=== PATIENT | male | born 1985 | race American Indian/Alaskan Native ===

== ENCOUNTER 2017-10-12 20:35 | Emergency (ER) | payer OTHER ==
[2017-10-12 21:27] LABS: Basophils % (Auto) 0.3 % (0.0-1.8); Hemoglobin 14.1 gm/dl (11.8-15.2); Lymphocytes # (Auto) 4.5 K/mm3 (1.2-5.4); Lymphocytes % (Auto) 38.6 % (13.4-35.0); Mean Corpuscular HGB Conc 33 % (32-34); Mean Corpuscular Hemoglobin 31 pg (28-32); Mean Corpuscular Volume 93 fl (84-94); Monocytes # (Auto) 1.6 K/mm3 (0.0-0.8); Monocytes % (Auto) 13.4 % (0.0-7.3); Platelet Count 204 K/mm3 (140-440); Red Blood Count 4.53 M/mm3 (3.65-5.03)
[2017-10-12 21:32] LABS: Bilirubin,Urine NEG (Negative); Blood,Urine NEG (Negative); Color,Urine Amber (Yellow); Mucus,Urine FEW /HPF; Nitrite,Urine NEG (Negative)
[2017-10-12 21:51] LABS: Alanine Aminotransferase 34 units/L (7-56); Albumin 3.6 g/dL (3.9-5); BUN/Creatinine Ratio 13; Blood Urea Nitrogen 13 mg/dL (9-20); Calcium 8.8 mg/dL (8.4-10.2); Hemolysis Index 5
[2017-10-12] MEDS ORDERED: TYLENOL ONE (21:59)
[2017-10-13] MEDS ORDERED: TYLENOL PO ONE (00:34)
[2017-10-13] MEDS ORDERED: TORADOL IV ONE (06:26)
[2017-10-13] MEDS ORDERED: MORPHINE IV ONE (06:26)
--- NOTE | 2017-10-13 06:26 | Emergency Department Report ---
ED Male HPI - General Chief complaint: Abdominal Pain Stated complaint: TESTICLE PAIN,FEVER Time Seen by Provider: 10/13/17 06:13 Source: patient Mode of arrival: Ambulatory Limitations: No Limitations - History of Present Illness Initial comments: Patient is a 32-year-old [place] male who is presenting with left testicular pain. Patient states he started having left testicular discomfort 3 days ago. Patient states he has swelling in this area. Pain is aching 6 out of 10 in severity. Patient denies dysuria trauma penile discharge nausea vomiting fever at this time. Patient was hoping that the pain will subside however it is getting worse. There is some radiation of the pain to the left inguinal area. MD Complaint: testicle pain, testicle swelling Location: left testicle Severity: moderate Severity scale (0 -10): 6 Quality: aching Consistency: constant Improves with: none Worsens with: none denies other symptoms, swelling. denies: discharge, mass, urinary retention, blood in urine, fever, nausea/vomiting, incontinence - Related Data Previous Rx's Medication Instructions Recorded Last Taken Type Ciprofloxacin HCl [Cipro] 500 mg PO BID #20 tablet 10/13/17 Unknown Rx Doxycycline [Vibramycin] 100 mg PO Q12HR #20 capsule 10/13/17 Unknown Rx HYDROcodone/APAP 7.5-325 [Brid[place] 1 each PO Q6HR PRN #20 tablet 10/13/17 Unknown Rx 7.5/325] Ibuprofen [Motrin] 800 mg PO Q8HR PRN #20 tablet 10/13/17 Unknown Rx Allergies Allergy/AdvReac Type Severity Reaction Status Date / Time No Known Allergies Allergy Unverified 10/12/17 20:54 ED Review of Systems ROS: Stated complaint: TESTICLE PAIN,FEVER Other details as noted in HPI Comment: All other systems reviewed and negative ED Past Medical Hx - Past Medical History Hx HIV: Yes Additional medical history: GENITAL HERPES, SEPSIS - Surgical History Past Surgical History?: No - Social History Smoking Status: Never Smoker Substance Use Type: None - Medications Home Medications: Home Medications Medication Instructions Recorded Confirmed Last Taken Type Ciprofloxacin HCl [Cipro] 500 mg PO BID #20 tablet 10/13/17 Unknown Rx Doxycycline [Vibramycin] 100 mg PO Q12HR #20 capsule 10/13/17 Unknown Rx HYDROcodone/APAP 7.5-325 [Brid[place] 1 each PO Q6HR PRN #20 tablet 10/13/17 Unknown Rx 7.5/325] Ibuprofen [Motrin] 800 mg PO Q8HR PRN #20 tablet 10/13/17 Unknown Rx ED Physical Exam - General Limitations: No Limitations General appearance: alert, in no apparent distress - Head Head exam: Present: atraumatic, normocephalic - Eye Eye exam: Present: normal appearance - ENT ENT exam: Present: mucous membranes moist - Neck Neck exam: Present: normal inspection - Respiratory Respiratory exam: Present: normal lung sounds bilaterally. Absent: respiratory distress - Cardiovascular Cardiovascular Exam: Present: regular rate, normal rhythm. Absent: systolic murmur, diastolic murmur, rubs, gallop - GI/Abdominal GI/Abdominal exam: Present: soft, normal bowel sounds - Rectal Rectal exam: Present: deferred - exam: Present: testicular tenderness, scrotal swelling (left-sided). Absent : normal inspection, urethral discharge - Extremities Exam Extremities exam: Present: normal inspection - Back Exam Back exam: Present: normal inspection - Neurological Exam Neurological exam: Present: alert, oriented X3 - Psychiatric Psychiatric exam: Present: normal affect, normal mood - Skin Skin exam: Present: warm, dry, intact, normal color. Absent: rash ED Course Vital Signs 10/12/17 10/13/17 10/13/17 20:44 00:35 05:15 Temperature 102.5 F H 97.9 F Pulse Rate 105 H 61 Respiratory 16 16 18 Rate Blood Pressure 112/80 118/87 Blood Pressure 112/80 [Right] O2 Sat by Pulse 98 100 Oximetry ED Medical Decision Making - Lab Data Result diagrams: 10/12/17 21:12 10/12/17 21:12 - Radiology Data Radiology results: report reviewed Left-sided epididymoorchitis shown on ultrasound. Patient will be started on antibiotics here in the emergency department. GC chlamydia has been covered for. Patient be discharged home with antibiotics and pain medicine. - Medical Decision Making Ultrasound testicle shows left-sided epididymal orchitis Critical care attestation.: If time is entered above; I have spent that time in minutes in the direct care of this critically ill patient, excluding procedure time. ED Disposition Clinical Impression: Epididymo-orchitis without abscess Disposition: - TO HOME OR SELFCARE Is pt being admited?: No Does the pt Need Aspirin: No Condition: Fair Instructions: Epididymitis (ED) Prescriptions: Ciprofloxacin HCl [Cipro] 500 mg PO BID #20 tablet Doxycycline [Vibramycin] 100 mg PO Q12HR #20 capsule HYDROcodone/APAP 7.5-325 [Bridgeton 7.5/325] 1 each PO Q6HR PRN #20 tablet PRN Reason: Pain Ibuprofen [Motrin] 800 mg PO Q8HR PRN #20 tablet PRN Reason: Pain Referrals: SERVANDO FULLER MD [Staff Physician] - 3-5 Days
--- NOTE | 2017-10-13 07:21 | Ultrasound Report ---
FINAL REPORT EXAM: US TESTICULAR DOPPLER COMP HISTORY: left test swelling fever COMPARISONS: None FINDINGS: Grayscale, color and spectral Doppler ultrasound evaluation of the testicles The right testicle measures 3.6 x 1.4 x 2.9 cm and demonstrates normal echotexture and color and spectral Doppler evaluation. The epididymis is within normal limits. No intra or extratesticular mass. The left testicle measures 5 x 2.6 x 3.9 cm. A small left-sided hydrocele is present. There is left testicular and epididymal hyperemia. The left epididymis is enlarged with maximal dimension of the epididymal head approximately 18 millimeters. Left testicular spectral Doppler waveforms are preserved. No evident abscess formation. No intra or extratesticular mass. No varicocele. No right-sided hydrocele. IMPRESSION: Left epididymitis and orchitis. No evident abscess formation.
[2017-10-13] MEDS ORDERED: ROCEPHIN IM ONE (07:40)
[2017-10-13] MEDS ORDERED: NORCO 10/325 PO ONE (07:40)
[2017-10-13] MEDS ORDERED: XYLOCAINE 1% MPF 5 mL INFILTRATI ONE (07:40)
[2017-10-13] MEDS ORDERED: VIBRAMYCIN PO ONE (07:42)
[2017-10-13] MEDS ORDERED: LEVAQUIN PO ONE (07:42)
[2017-10-13] MEDS ORDERED: NORCO 5/325 ONE (08:12)
[2017-10-13] MEDS ORDERED: VIBRAMYCIN ONE (08:13)
[2017-10-13] MEDS ORDERED: ROCEPHIN ONE (08:13)
[2017-10-13] MEDS ORDERED: LEVAQUIN ONE (08:15)
[2017-10-13] MEDS ORDERED: NORCO 10/325 ONE (08:18)
[2017-10-13] MEDS ORDERED: XYLOCAINE 1% MPF 5 mL ONE (08:19)
[2017-10-13 08:27] VITALS: BP 128/75
== END 2017-10-13 09:15 | disposition home or self-care (01) ==
LOC: ED 20:35
DX: N45.3 Epididymo-orchitis (principal)
CPT/HCPCS: 36415; 80053; 81001; 85025; 93975; 96372; 99284; J0696